=== PATIENT | male | born 1945 | race Caucasian/White ===

== ENCOUNTER 2016-11-19 17:32 | Emergency (ER) | payer MEDICARE ==
[~2016-11-19 17:32] MED LIST: ADVICOR 1,001 BOTTLE; ALEVE220 M2 PO; ALLEGRA-D1 TAB.SR; ALTACE10 MG PO; ALTACE5 MG; ASPIR 8181 M1 PO; AVANDIA8 MG; CPAP; FISH OIL 1,0001 CAP; FISH OIL 1,2001 CAP PO; GLUCOPHAGE500 MG; JANUMET 50-1,1 UDTAB PO; LOVENOX40 MG/0.4 SQ; MILK OF MAGNESIA PO; MOTRIN200 MG/TA1 PO; NEURONTIN100 MG PO; NORVASC5 MG PO; OXYCODONE/APAP PO; PRAVACHOL10 MG PO; PREVACID30 MG; PRILOSEC OTC20 M1 PO; SENOKOT-S TABLE1 TAB PO; SPIRIVA18 MCG; TYLENOL325 M1 PO; ULTRAM50 MG PO; XARELTO10 MG PO; [UNRECOGNIZED DRUG - REMARK]
[2016-11-19] MEDS ORDERED: VICTOZA 2-0.6 MG/0.1 SC (18:41)
[2016-11-19] MEDS ORDERED: GLUCOPHAGE500 M3 PO (18:41)
[2016-11-19] MEDS ORDERED: PRINIVIL20 M1 PO (18:42)
[2016-11-19] MEDS ORDERED: GLUCOTROL XL5 M1 PO (18:43)
[2016-11-19] MEDS ORDERED: BENEFIBER144 GM PO (18:43)
[2016-11-19] MEDS ORDERED: INVOKANA100 MG PO (18:43)
== END 2016-11-19 20:35 ==
LOC: EDMED 17:32
DX: S50.02XA Contusion of left elbow, initial encounter (principal); I25.10 Atherosclerotic heart disease of native coronary artery without angina pectoris; I10 Essential (primary) hypertension; E11.9 Type 2 diabetes mellitus without complications; K21.9 Gastro-esophageal reflux disease without esophagitis; Z87.891 Personal history of nicotine dependence; Z86.718 Personal history of other venous thrombosis and embolism; W20.8XXA Other cause of strike by thrown, projected or falling object, initial encounter; Y93.89 Activity, other specified; Y92.019 Unspecified place in single-family (private) house as the place of occurrence of the external cause; Y99.8 Other external cause status